=== PATIENT | male | born 1955 | race Caucasian/White ===

== ENCOUNTER 2016-09-23 05:38 | Emergency (ER) | payer MEDICAID | END 2016-09-23 07:18 | disposition home or self-care (01) | LOC: D.ER 05:38 | DX: R50.9 Fever, unspecified (principal); I10 Essential (primary) hypertension ==

== ENCOUNTER 2017-11-14 22:20 | Emergency (ER) | payer MEDICAID | END 2017-11-14 23:15 | disposition home or self-care (01) | LOC: D.ER 22:20 | DX: M10.072 Idiopathic gout, left ankle and foot (principal); F17.200 Nicotine dependence, unspecified, uncomplicated ==

== ENCOUNTER 2018-05-17 11:10 | Emergency (ER) | payer MEDICAID ==
[~2018-05-17] VITALS: Ht 182.9 cm; Wt 95.5 kg
[2018-05-17 11:25] VITALS: Ht 182.9 cm; Wt 95.5 kg
[2018-05-17] MEDS ORDERED: ULTRAM50 MG PO (11:27)
[2018-05-17] MEDS ORDERED: BP PILL (11:28)
[2018-05-17] MEDS ORDERED: [UNRECOGNIZED DRUG - REMARK] (11:28)
[2018-05-17] MEDS ORDERED: VENTOLIN HFA18 GM INH (11:29)
[2018-05-17] MEDS ORDERED: NORCO 7.5/325 T1 TA1 PO (13:11)
[2018-05-17] MEDS ORDERED: NAPROSYN500 MG PO (13:11)
[2018-05-17 13:52] VITALS: BP 112/078
== END 2018-05-17 13:53 | disposition home or self-care (01) ==
LOC: D.ER 11:10
DX: M25.511 Pain in right shoulder (principal); I10 Essential (primary) hypertension; J44.9 Chronic obstructive pulmonary disease, unspecified

== ENCOUNTER 2019-07-10 15:30 | Emergency (ER) | payer MEDICAID ==
[2018-05-17 11:25] VITALS: BMI 28.5
[~2019-07-10 15:30] MED LIST: BP PILL; NAPROSYN500 MG PO; NORCO 7.5/325 T1 TA1 PO; ULTRAM50 MG PO; VENTOLIN HFA18 GM INH; [UNRECOGNIZED DRUG - REMARK]
== END 2019-07-10 16:06 | disposition left against medical advice (07) ==
LOC: D.ER 15:30
DX: R10.9 Unspecified abdominal pain (principal)